=== PATIENT | male | born 1970 | race Caucasian/White ===

== ENCOUNTER 2016-10-24 11:48 | Day surgery (SDC) | payer BC, OTHER ==
[2016-10-24] MEDS ORDERED: LIDOCAINE 1% 2 ML VIAL ID PRN (12:32)
[2016-10-24] MEDS ORDERED: ONDANSETRON 4 MG/2ML 2 ML VIAL IV PRN (12:32)
[2016-10-24] MEDS ORDERED: SODIUM CHLORIDE 0.9% 1,000 ML IV SCH (12:32)
[2016-10-24] MEDS ORDERED: IV START KIT ONE (12:35)
[2016-10-24] MEDS ORDERED: PROPOFOL 40 ML IV ONE (13:17)
[2016-10-24 18:21] LABS: HELICOBACTER PYLORII DETECTION NEGATIVE (NEGATIVE)
--- NOTE | 2016-10-28 11:43 | SURGPATH ---
[facility] [address] [place] [id number] Patient Name: SHANDA GUTIERREZ MR#: [id number] : 1970 Gender: M Specimen #: [id number] Collected: 10/24/2016 Received: 10/25/2016 Reported: 10/28/2016 Submitting Phys: JERRY KNOTT Copy To Phys: OMAR BRYSON [facility] Clinical History / Pre-Operative Diagnosis: ABDOMINAL PAIN; VOMITING Specimen Source / Surgical Procedure Performed: #1-ANTRAL X2; #2-GE JUNCTION X4 Interpretation: 1. GASTRIC ANTRUM, BIOPSY: - MILD CHRONIC GASTRITIS. - NO MICROORGANISMS IDENTIFIED WITH ROUTINE STAINING. - NO EVIDENCE OF ACUTE INFLAMMATION, INTESTINAL METAPLASIA, OR MALIGNANCY. 2. GE JUNCTION, BIOPSY: - SQUAMOUS MUCOSA WITH ASSOCIATED GLANDULAR MUCOSA SHOWING MILD CHRONIC NONSPECIFIC INFLAMMATION. - NO EVIDENCE OF INTESTINAL METAPLASIA OR MALIGNANCY. Electronically Signed Out Emre Lopez M.D., Ph.D. Gross Description: #1 The specimen is received in a formalin filled container labeled with the patient's name and "antral x2". Two denton biopsies are 0.4 and 0.5 cm. Totally embedded in cassette #1. #2 The specimen is received in a formalin filled container labeled with the patient's name and "GE junction". Four denton biopsies are 0.3-0.5 cm. Totally embedded in cassette #2. Jose Van Microscopic Description: 1. Examination of multiple levels from the gastric antrum biopsy shows multiple fragments of gastric mucosa with expansion of the lamina propria by mixed inflammatory cell infiltrate consisting of lymphocytes, plasma cells, and occasional eosinophils. No neutrophils are seen. No microorganisms identified with routine staining. There is no evidence of intestinal metaplasia or malignancy. 2. Examination of multiple levels from the GE junction biopsy shows multiple fragments of squamous mucosa with associated glandular mucosa with a mild chronic nonspecific inflammatory cell infiltrate. There is no evidence of intestinal metaplasia or malignancy. 1: [id number] 2: 95977 K29.50 K20.9
== END 2016-10-24 14:58 | disposition home or self-care (01) ==
LOC: SDC 11:48
PROVIDERS: ATTEND Surgery
PROC: 0DJD8ZZ Inspection of Lower Intestinal Tract, Via Natural or Artificial Opening Endoscopic (ICD-10-PCS; principal; 2016-10-24)
PROC: 0DB38ZX Excision of Lower Esophagus, Via Natural or Artificial Opening Endoscopic, Diagnostic (ICD-10-PCS; 2016-10-24)
PROC: 0DB68ZX Excision of Stomach, Via Natural or Artificial Opening Endoscopic, Diagnostic (ICD-10-PCS; 2016-10-24)
DX: K22.70 Barrett's esophagus without dysplasia (principal); K29.50 Unspecified chronic gastritis without bleeding; K57.30 Diverticulosis of large intestine without perforation or abscess without bleeding; K21.9 Gastro-esophageal reflux disease without esophagitis; E66.9 Obesity, unspecified; E11.9 Type 2 diabetes mellitus without complications; I10 Essential (primary) hypertension; Z68.41 Body mass index [BMI] 40.0-44.9, adult